=== PATIENT | male | born 1970 ===

== ENCOUNTER 2023-07-07 20:45 | Emergency (ER) | payer OTHER ==
[~2023-07-07] VITALS: Ht 177.8 cm; Wt 92.1 kg
[2023-07-07] MEDS ORDERED: CEPHALEXIN500 M1 PO (21:27)
== END 2023-07-07 21:45 | disposition home or self-care (01) ==
LOC: ED 20:45
DX: S01.511A Laceration without foreign body of lip, initial encounter (principal); W01.0XXA Fall on same level from slipping, tripping and stumbling without subsequent striking against object, initial encounter; Y93.01 Activity, walking, marching and hiking; Y92.89 Other specified places as the place of occurrence of the external cause; Y99.8 Other external cause status